=== PATIENT | female | born 1990 | race Caucasian/White ===

== ENCOUNTER 2018-03-20 08:00 | Day surgery (SDC) | payer OTHER ==
[~2018-03-20 08:00] MED LIST: Dexamethasone 4 MG/ML 5 ML MDV ONE; HYDROmorphone 0.5 MG/0.5 ML Syringe ONE; Ketorolac 30 MG/ML SDV ONE; Midazolam 1 MG/ML 2 ML SDV ONE; Ondansetron 4 MG/2 ML SDV ONE; Rocuronium 50 MG/5 ML Vial ONE; fentaNYL 250 MCG/5 ML SDV ONE
[2018-03-20] MEDS ORDERED: Lidocaine 1% with EPINEPHrine 1:100,000 20 ML MDV ONE (08:06)
[2018-03-20] MEDS ORDERED: Sodium Chloride 0.9% 50 ML SDV ONE (08:07)
[2018-03-20] MEDS ORDERED: Propofol 200 MG/20 ML SDV ONE (08:17)
--- NOTE | 2018-03-20 08:26 | PCM.PREANE ---
Preanesthetic Assessment - Anesthesia/Transfusion/Family Hx Anesthesia History: Prior Anesthesia Without Reaction Family History of Anesthesia Reaction: No Transfusion History: No Prior Transfusion(s) - Review of Systems General: No Symptoms Pulmonary: Other (exercise induced asthma, no symptoms for 2+ years, does use vapes, last this am) Cardiovascular: No Symptoms Gastrointestinal: No Symptoms Neurological: No Symptoms Other: Reports: Thyroid Problems (hypothyroidism on replacement) - Physical Assessment NPO Status Date: 03/19/18 NPO Status Time: 18:00 Pulse: 77 O2 Sat by Pulse Oximetry: 100 Respiratory Rate: 16 Blood Pressure: 94/67 Temperature: 36.8 C Weight: 60.4 kg ASA Class: 2 Mental Status: Alert & Oriented x3 Airway Class: Mallampati = 2 Dentition: Reports: Normal Dentition Thyro-Mental Finger Breadths: 3 Mouth Opening Finger Breadths: 3 ROM/Head Extension: Full Lungs: Clear to Auscultation, Normal Respiratory Effort Cardiovascular: Regular Rate, Regular Rhythm - Allergies Allergies/Adverse Reactions: Allergies Allergy/AdvReac Type Severity Reaction Status Date / Time Penicillins Allergy Anaphylactic Verified 03/19/18 08:48 Shock - Blood Blood Available: No Product(s) Available: None - Anesthesia Plan Pre-Op Medication Ordered: None - Acknowledgements Anesthesia Type Planned: General Anesthesia Pt an Appropriate Candidate for the Planned Anesthesia: Yes Alternatives and Risks of Anesthesia Discussed w Pt/Guardian: Yes Pt/Guardian Understands and Agrees with Anesthesia Plan: Yes PreAnesthesia Questionnaire Cardiovascular History: Reports: None Respiratory History: Reports: Asthma Gastrointestinal History: Reports: Other (See Below) Other Gastrointestinal History: abdominal pain Genitourinary History: PROPOSAL CONSULTANT History: Reports: Other (See Below) Other OB/BYN History: menorrhagia, dysmenorrhea, dyspareunia Musculoskeletal History: Reports: None Neurological History: Reports: None Psychiatric History: Reports: None Endocrine/Metabolic History: Reports: Hypothyroidism, Vitamin D Deficiency Hematologic History: Reports: None Immunologic History: Reports: None Oncologic (Cancer) History: Reports: None Dermatologic History: Reports: None - Past Surgical History Head Surgeries/Procedures: Reports: None HEENT Surgical History: Reports: Tonsillectomy Cardiovascular Surgical History: Reports: None Respiratory Surgical History: Reports: None GI Surgical History: Reports: None Female Surgical History: Reports: Tubal Ligation Male Surgical History: Reports: None Endocrine Surgical History: Reports: None Neurological Surgical History: Reports: None Musculoskeletal Surgical History: Reports: None Oncologic Surgical History: Reports: None Dermatological Surgical History: Reports: None - SUBSTANCE USE Smoking Status *Q: Current Every Day Smoker Recreational Drug Use History: No - HOME MEDS Home Medications: Home Meds Cholecalciferol (Vitamin D3) [Vitamin D3] 50,000 unit PO Q72H 03/19/18 [History] Levothyroxine 25 mcg PO DAILY 03/19/18 [History] Multivitamin [Daily Multiple Vitamin] 1 tab PO DAILY 03/19/18 [History] - CURRENT (IN HOUSE) MEDS Current Meds: Current Medications Discontinued Medications Dexamethasone (Dexamethasone) Confirm Administered Dose 20 mg .ROUTE .STK-MED ONE Stop: 03/20/18 07:01 Fentanyl (Sublimaze) Confirm Administered Dose 250 mcg .ROUTE .STK-MED ONE Stop: 03/20/18 07:01 Hydromorphone HCl (Dilaudid) Confirm Administered Dose 0.5 mg .ROUTE .STK-MED ONE Stop: 03/20/18 07:01 Ketorolac Tromethamine (Toradol) Confirm Administered Dose 30 mg .ROUTE .STK- MED ONE Stop: 03/20/18 07:01 Lidocaine/Epinephrine (Xylocaine 1% With Epinephrine 1:100,000) Confirm Administered Dose 20 ml .ROUTE .STK-MED ONE Stop: 03/20/18 08:07 Midazolam HCl (Versed 1 Mg/Ml) Confirm Administered Dose 2 mg .ROUTE .STK-MED ONE Stop: 03/20/18 07:01 Ondansetron HCl (Zofran) Confirm Administered Dose 4 mg .ROUTE .STK-MED ONE Stop: 03/20/18 07:01 Propofol (Diprivan 20 Ml) Confirm Administered Dose 200 mg .ROUTE .STK-MED ONE Stop: 03/20/18 08:18 Rocuronium [place] (Zemuron) Confirm Administered Dose 50 mg .ROUTE .STK-MED ONE Stop: 03/20/18 07:01 Sodium Chloride (Normal Saline) Confirm Administered Dose 50 ml .ROUTE .STK-MED ONE Stop: 03/20/18 08:08
[2018-03-20] MEDS ORDERED: GENTAMICIN IV ONE ×2 (09:00)
[2018-03-20] MEDS ORDERED: DEXTROSE 5% IV ONE ×2 (09:00)
[2018-03-20] MEDS ORDERED: Clindamycin Phosphate 900 MG in Dextrose 5% in Water 100 ML IV ONE ×2 (09:00)
[2018-03-20] MEDS ORDERED: WATER IV ONE ×2 (09:00)
[2018-03-20] MEDS ORDERED: Lidocaine 1%/Sod Bicarbonate in NS 8.4% 1 ML Syringe IDERM PRN (09:40)
[2018-03-20] MEDS ORDERED: Sodium Chloride 0.9% 10 ML Syringe FLUSH PRN (09:40)
[2018-03-20] MEDS ORDERED: HYDROmorphone 0.5 MG/0.5 ML Syringe ONE (09:43)
[2018-03-20] MEDS ORDERED: Lactated Ringers 1,000 ML IV SCH (09:45)
[2018-03-20] MEDS ORDERED: Lactated Ringers 1,000 ML ONE ×2 (10:01→10:18)
--- NOTE | 2018-03-20 10:17 | PCM.OPNOTE ---
- General Post-Op/Procedure Note Date of Surgery/Procedure: 03/20/18 Operative Procedure(s): Total vaginal hysterectomy with bilateral salpingectomy Findings: Overall normal-appearing cervix, uterus, bilateral tubes and visualized portions of the bilateral ovaries. Advised portion of the intestines was normal. Falope ring was present bilaterally on the fallopian tubes Pre Op Diagnosis: Menorrhagia, dysmenorrhea, dyspareunia Post-Op Diagnosis: Same Anesthesia Technique: General ET Tube Primary Surgeon: Dean Gutierrez Anesthesia Provider: Laura Lazo Head Waiter/Waitress: Christiano Correia Reason Head Waiter/Waitress Was Necessary: Patient safety, reduction of patient morbidity and mortality, retraction Role of Head Waiter/Waitress: Retraction and assisting with visualization during difficult portions of the case Pathology: Cervix, uterus, bilateral fallopian tubes with Falope ring bilaterally Fluid Replacement, Intraop: 2,000 Output, Urine Amount: 0 EBL in mLs: 150 Complications: None Condition: Good Free Text/Narrative:: Procedure in detail: The patient was seen in the preoperative holding area and risks, benefits, indications, and alternatives of the procedure were reviewed with the patient and she desired to proceed with a total vaginal hysterectomy with bilateral salpingectomy. Consents were signed. The patient was given general anesthesia with an endotracheal tube that was placed without difficulty. The patient was placed in dorsal lithotomy position , prepped, and draped in normal sterile fashion. A weighted speculum was placed into the vagina and the anterior lip of the cervix was grasped with the single-tooth tenaculum. A double-tooth tenaculum was then used to grasp the entirety of the cervix. The cervix was injected circumferentially with 0.25% lidocaine with epinephrine. The cervix was circumferentially incised with a scalpel. The bladder was dissected off the pubovesical cervical fascia anteriorly with Lauren scissors. The anterior cul-de-sac was entered sharply. The posterior cul-de-sac was entered sharply without difficulty using Lauren scissors. A Melody clamp was placed over the uterosacral ligaments on the patient's left side. These were transected and suture ligated with 0-Monocryl suture. This was repeated on the patient's right side. Hemostasis was assured. The cardinal ligaments were then clamped on both sides with Enseal vessel sealing device cauterized and transected. The uterine arteries and broad ligament were then serially clamped with Enseal vessel sealing device, cauterized and transected on both sides. Excellent hemostasis was visualized. The cornua were clamped bilaterally with Enseal vessel sealing device cauterized and transected and the uterus delivered. The fallopian tubes on the patient's right side was grasped using a [place] clamp and the broad ligament portion was clamped using Enseal device cauterized and transected from underlying tissue. This was repeated on the patient's left side. The surgical beds were inspected and noted to be hemostatic. The posterior vaginal cuff was closed with running locked sutures of 0-Monocryl. The anterior vaginal cuff was closed with [id number] stitches in a vertical fashion with 0-Monocryl. The remainder of the vaginal cuff was closed with [id number] stitches of 0- Monocryl in an interrupted fashion. All instruments were removed from the vagina. The patient was awoken and taken to the PACU for recovery in stable condition. Sponge, lap, needle, and instrument counts were correct x 2.
[2018-03-20] MEDS ORDERED: fentaNYL 100 MCG/2 ML SDV IVPUSH PRN (10:27)
[2018-03-20] MEDS ORDERED: Ondansetron 4 MG/2 ML SDV IVPUSH PRN (10:27)
--- NOTE | 2018-03-20 10:27 | PCM.POSTAN ---
POST ANESTHESIA ASSESSMENT - MENTAL STATUS Mental Status: Alert, Oriented - VITAL SIGNS Pulse Rate: 73 SaO2: 100 Resp Rate: 9 Blood Pressure: 100/63 Temperature: 98.1 C - CARDIOVASCULAR CV Status: Pulse Rate WNL, Blood Pressure Stable - GASTROINTESTINAL GI Status: No Symptoms - PAIN Pain Score: 0 - POST OP HYDRATION Hydration Status: Adequate & Stable
[2018-03-20] MEDS ORDERED: HYDROmorphone 0.5 MG/0.5 ML Syringe IVPUSH ONE (11:00)
[2018-03-20] MEDS ORDERED: Acetaminophen/oxyCODONE 325-5 MG Tab PO ONE (11:55)
--- NOTE | 2018-03-20 12:07 | PCM48HPAN ---
Post Anesthesia Note - EVALUATION WITHIN 48HRS OF ANESTHETIC Vital Signs in Normal Range: Yes Patient Participated in Evaluation: Yes Respiratory Function Stable: Yes Airway Patent: Yes Cardiovascular Function Stable: Yes Hydration Status Stable: Yes Pain Control Satisfactory: Yes Nausea and Vomiting Control Satisfactory: Yes Mental Status Recovered: Yes Pulse Rate: 75 Resp Rate: 16 Temperature: 98.1 C Blood Pressure: 99/65
== END 2018-03-20 13:45 | disposition home or self-care (01) ==
LOC: JD.SDS 08:00
PROVIDERS: ATTEND Obstetrics & Gynecology
DX: N87.9 Dysplasia of cervix uteri, unspecified (principal); K66.0 Peritoneal adhesions (postprocedural) (postinfection); N83.8 Other noninflammatory disorders of ovary, fallopian tube and broad ligament; N92.0 Excessive and frequent menstruation with regular cycle; N94.6 Dysmenorrhea, unspecified; N94.10 Unspecified dyspareunia; J45.909 Unspecified asthma, uncomplicated; E03.9 Hypothyroidism, unspecified; E55.9 Vitamin D deficiency, unspecified; Z88.0 Allergy status to penicillin; Z79.899 Other long term (current) drug therapy
CPT/HCPCS: 36415; 58262; 81025; 86850; 86900; 86901; A9270; J1100; J1170; J1885; J2250; J2405; J3010; J7120; 00944; J2704

== ENCOUNTER 2019-02-14 09:14 | Emergency (ER) | payer OTHER ==
--- NOTE | 2019-02-14 09:44 | EDM.PDOC ---
ED HPI GENERAL MEDICAL PROBLEM - General Chief Complaint: Headache Stated Complaint: HEADACHE x 2 MONTHS Time Seen by Provider: 02/14/19 09:43 - History of Present Illness INITIAL COMMENTS - FREE TEXT/NARRATIVE: 28-year-old female presents emergency room with a headache. This headache is been going on for 2 months it is located in the front of her head and behind her eyes. Several weeks ago she was seen by her regular provider found to be hypothyroid and was started on therapy. She has a history of hypothyroidism and this is been followed for a while. She was started on levothyroxine 50 g a day and since this time the patient has noticed palpitations she is shaky and her headache is no better. She had intermittent headaches in the past. Headache Pain Score (Numeric/FACES): 6 - Related Data Allergies Allergy/AdvReac Type Severity Reaction Status Date / Time Penicillins Allergy Anaphylactic Verified 02/14/19 09:25 Shock Home Meds: Home Meds Cholecalciferol (Vitamin D3) [Vitamin D3] 50,000 unit PO Q72H 03/19/18 [History] Levothyroxine 50 mcg PO DAILY 03/19/18 [History] Riboflavin 400 mg PO DAILY 02/14/19 [History] Past Medical History Cardiovascular History: Reports: None Respiratory History: Reports: Asthma Gastrointestinal History: Reports: Other (See Below) Other Gastrointestinal History: abdominal pain RUBBER TURNER History: Reports: Other (See Below) Other RUBBER TURNER History: menorrhagia, dysmenorrhea, dyspareunia Musculoskeletal History: Reports: None Neurological History: Reports: None Psychiatric History: Reports: None Endocrine/Metabolic History: Reports: Hypothyroidism, Vitamin D Deficiency Hematologic History: Reports: None Immunologic History: Reports: None Oncologic (Cancer) History: Reports: None Dermatologic History: Reports: None - Past Surgical History Head Surgeries/Procedures: Reports: None HEENT Surgical History: Reports: Tonsillectomy Cardiovascular Surgical History: Reports: None Respiratory Surgical History: Reports: None GI Surgical History: Reports: None Female Surgical History: Reports: Tubal Ligation Endocrine Surgical History: Reports: None Neurological Surgical History: Reports: None Musculoskeletal Surgical History: Reports: None Oncologic Surgical History: Reports: None Dermatological Surgical History: Reports: None Social & Family History - Caffeine Use Caffeine Use: Reports: Coffee - Recreational Drug Use Recreational Drug Use: No ED ROS GENERAL - Review of Systems Review Of Systems: See Below Constitutional: Reports: Fatigue. Denies: Night Sweats HEENT: Reports: Eye Pain (Bilateral behind her eyes) Respiratory: Reports: No Symptoms Cardiovascular: Reports: Palpitations Endocrine: Reports: Fatigue GI/Abdominal: Reports: Nausea. Denies: Abdominal Pain : Reports: No Symptoms Skin: Reports: No Symptoms Neurological: Denies: Difficulty Walking Psychiatric: Reports: Anxiety Immunologic: Reports: No Symptoms - Physical Exam Exam: See Below Exam Limited By: No Limitations General Appearance: Other (Mildly anxious) Eye Exam: Right Eye: Other (No obvious exoptosis however she seemed to have some discomfort behind both of her eyes. She has a slender posture and I do not have a certain baseline.) Ears: Normal External Exam, Normal Canal, Hearing Grossly Normal, Normal TMs Nose: Normal Inspection, Normal Mucosa, No Blood Throat/Mouth: Normal Inspection, Normal Lips, Normal Teeth, Normal Gums, Normal Oropharynx, Normal Voice, No Airway Compromise Head Exam: Atraumatic, Normocephalic Neck: Normal Inspection, Supple, Non-Tender, Full Range of Motion. No: Lymphadenopathy (L), Lymphadenopathy (R) Respiratory/Chest: No Respiratory Distress, Lungs Clear, Normal Breath Sounds Cardiovascular: Regular Rate, Rhythm, No Edema, No Murmur GI/Abdominal: Normal Bowel Sounds, Soft, Non-Tender Neuro Exam (Abbreviated): Other (Cranial nerves II through XII grossly intact all muscle groups the upper extremities recall appropriate bilaterally she has no difficulty with ambulation deep tendon reflexes the patella and brachial radialis are normal. Cerebellar testing is entirely within normal limits.) Course - Vital Signs Last Recorded V/S: Last Vital Signs Temp 36.8 C 02/14/19 09:22 Pulse 120 H 02/14/19 09:22 Resp 16 02/14/19 09:22 BP 131/87 02/14/19 09:22 Pulse Ox 97 02/14/19 09:22 - Orders/Labs/Meds Orders: Active Orders 24 hr Category Date Time Status EKG Documentation Completion [RC] STAT Care 02/14/19 09:57 Active Labs: Laboratory Tests 02/14/19 02/14/19 02/14/19 Range/Units 10:10 10:10 10:36 WBC 5.23 (3.98-10.04) K/mm3 RBC 4.36 (3.98-5.22) M/mm3 Hgb 13.5 (11.2-15.7) gm/L Hct 39.4 (34.1-44.9) % MCV 90.4 (79.4-94.8) fl MCH 31.0 (25.6-32.2) pg MCHC 34.3 (32.2-35.5) g/dl RDW Std Deviation 41.5 (36.4-46.3) fL Plt Count 237 (182-369) K/mm3 MPV 9.2 L (9.4-12.3) fl Neutrophils % (Manual) 63 H (40-60) % Band Neutrophils % 0 (0-10) % Lymphocytes % (Manual) 28 (20-40) % Atypical Lymphs % 0 % Monocytes % (Manual) 2 (2-10) % Eosinophils % (Manual) 6 H (0.7-5.8) % Basophils % (Manual) 1 (0.1-1.2) Platelet Estimate Adequate RBC Morph Comment Normal Sodium 140 (136-145) mEq/L Potassium 3.9 (3.5-5.1) mEq/L Chloride 105 (98-107) mEq/L Carbon Dioxide 25 (21-32) mEq/L Anion Gap 13.9 (5-15) BUN 11 (7-18) mg/dL Creatinine 1.0 (0.55-1.02) mg/dL Est Cr Clr Drug Dosing 75.40 mL/min Estimated GFR (MDRD) > 60 (>60) mL/min BUN/Creatinine Ratio 11.0 L (14-18) Glucose 95 (74-106) mg/dL Calcium 9.2 (8.5-10.1) mg/dL Total Bilirubin 0.3 (0.2-1.0) mg/dL AST 13 L (15-37) U/L ALT 16 (14-59) U/L Alkaline Phosphatase 35 L (46-116) U/L Total Protein 7.5 (6.4-8.2) g/dl Albumin 4.3 (3.4-5.0) g/dl Globulin 3.2 gm/dL Albumin/Globulin Ratio 1.3 (1-2) Free T4 0.90 (0.76-1.46) ng/dL TSH 3rd Generation 4.591 H (0.358-3.74) uIU/mL Urine Color Yellow (Yellow) Urine Appearance Clear (Clear) Urine pH 7.0 (5.0-8.0) Ur Specific [place] 1.015 (1.005-1.030) Urine Protein Negative (Negative) Urine Glucose (UA) Negative (Negative) Urine Ketones Negative (Negative) Urine Occult Blood Negative (Negative) Urine Nitrite Negative (Negative) Urine Bilirubin Negative (Negative) Urine Urobilinogen 0.2 (0.2-1.0) Ur Leukocyte Esterase Negative (Negative) Urine RBC 0-5 (0-5) /hpf Urine WBC 0-5 (0-5) /hpf Ur Epithelial Cells 0-5 (0-5) /hpf Urine Bacteria Not seen (FEW) /hpf Urine Mucus Not seen (FEW) /hpf Urine Opiates Screen (OFPJYF=974) Ur Buprenorphine Scrn (CUTOFF=10) Ur Oxycodone Screen (WJW8IF=859) Urine Methadone Screen (RSQQJD=121) Ur Propoxyphene Screen (VITSPC=356) Ur Barbiturates Screen (XHDYXO=195) Ur Tricyclics Screen (WCKYBE=885) Ur Phencyclidine Scrn (CUTOFF=25) Ur Amphetamine Screen (RGOWVG=295) U Methamphetamines Scrn (YFUVDQ=526) U Benzodiazepines Scrn (TOZLFR=879) U Cocaine Metab Screen (HHGVAD=670) U Marijuana (THC) Screen (CUTOFF=50) 02/14/19 Range/Units 11:40 WBC (3.98-10.04) K/mm3 RBC (3.98-5.22) M/mm3 Hgb (11.2-15.7) gm/L Hct (34.1-44.9) % MCV (79.4-94.8) fl MCH (25.6-32.2) pg MCHC (32.2-35.5) g/dl RDW Std Deviation (36.4-46.3) fL Plt Count (182-369) K/mm3 MPV (9.4-12.3) fl Neutrophils % (Manual) (40-60) % Band Neutrophils % (0-10) % Lymphocytes % (Manual) (20-40) % Atypical Lymphs % % Monocytes % (Manual) (2-10) % Eosinophils % (Manual) (0.7-5.8) % Basophils % (Manual) (0.1-1.2) Platelet Estimate RBC Morph Comment Sodium (136-145) mEq/L Potassium (3.5-5.1) mEq/L Chloride (98-107) mEq/L Carbon Dioxide (21-32) mEq/L Anion Gap (5-15) BUN (7-18) mg/dL Creatinine (0.55-1.02) mg/dL Est Cr Clr Drug Dosing mL/min Estimated GFR (MDRD) (>60) mL/min BUN/Creatinine Ratio (14-18) Glucose (74-106) mg/dL Calcium (8.5-10.1) mg/dL Total Bilirubin (0.2-1.0) mg/dL AST (15-37) U/L ALT (14-59) U/L Alkaline Phosphatase (46-116) U/L Total Protein (6.4-8.2) g/dl Albumin (3.4-5.0) g/dl Globulin gm/dL Albumin/Globulin Ratio (1-2) Free T4 (0.76-1.46) ng/dL TSH 3rd Generation (0.358-3.74) uIU/mL Urine Color (Yellow) Urine Appearance (Clear) Urine pH (5.0-8.0) Ur Specific [place] (1.005-1.030) Urine Protein (Negative) Urine Glucose (UA) (Negative) Urine Ketones (Negative) Urine Occult Blood (Negative) Urine Nitrite (Negative) Urine Bilirubin (Negative) Urine Urobilinogen (0.2-1.0) Ur Leukocyte Esterase (Negative) Urine RBC (0-5) /hpf Urine WBC (0-5) /hpf Ur Epithelial Cells (0-5) /hpf Urine Bacteria (FEW) /hpf Urine Mucus (FEW) /hpf Urine Opiates Screen Negative (OTTFLY=342) Ur Buprenorphine Scrn Negative (CUTOFF=10) Ur Oxycodone Screen Negative (KLM1RA=753) Urine Methadone Screen Negative (YVMAKP=699) Ur Propoxyphene Screen Negative (OYNONV=227) Ur Barbiturates Screen Negative (YGFTRX=650) Ur Tricyclics Screen Negative (HZDGXH=483) Ur Phencyclidine Scrn Negative (CUTOFF=25) Ur Amphetamine Screen Negative (WNTFOT=056) U Methamphetamines Scrn Negative (ESLTZM=334) U Benzodiazepines Scrn Negative (CFMWUC=316) U Cocaine Metab Screen Negative (KWYIAC=650) U Marijuana (THC) Screen Negative (CUTOFF=50) Meds: Medications Discontinued Medications Generic Name Dose Route Start Last Admin Trade Name Anahi PRN Reason Stop Dose Admin Diphenhydramine HCl 50 mg 02/14/19 09:57 02/14/19 10:11 Benadryl IVPUSH 02/14/19 09:58 50 mg ONETIME ONE Administration Lactated Ringer's 1,000 mls @ 999 mls/hr 02/14/19 09:57 02/14/19 10:10 Ringers, Lactated IV 02/14/19 10:57 999 mls/hr .BOLUS ONE Administration Ondansetron HCl 4 mg 02/14/19 09:57 02/14/19 10:11 Zofran Odt PO 02/14/19 09:58 4 mg ONETIME ONE Administration Propranolol HCl 30 mg 02/14/19 11:26 02/14/19 11:51 Inderal PO 02/14/19 11:27 30 mg ONETIME ONE Administration - Re-Assessments/Exams Free Text/Narrative Re-Assessment/Exam: 02/14/19 11:59 A she has a headache this could be secondary to hyperthyroidism on top of hypothyroid changes behind her eyes however this is somewhat uncertain as her headache started before she was started on the supplementation will give her fluids Benadryl and Zofran this perhaps helped a little. Her pulses come down. We'll try her on gentle dose of propranolol and without significant improvement in her headache will check a CT. I suspect a lot of her symptoms are due to start in the thyroid supplementation on top of what sounds like chronic hypothyroidism. Case reviewed with the hospitalist Dr. Melendez who agrees on this treatment plan. The patient will have very close outpatient follow-up with recommendations to check for autoimmune causes of her hypothyroid state 02/14/19 13:10 CT is normal the patient is exit doing better after 30 mg of propanolol headache is improving somewhat she is much less shaky and able to sleep. We will discharge at this time anticipate clinic follow-up in the next couple of days would recommend further thyroid testing looking for autoimmune causes. We' ll put her on a short course of propanolol 30 mg 3 times a day, #30 it is my hope she's on this for a short period of time. She will decrease her level of thyroxine to half a pill daily until advised to increase. Departure - Departure Time of Disposition: 13:13 Disposition: Home, Self-Care 01 Clinical Impression: Headache, Hypothyroidism, Iatrogenic hyperthyroidism - Discharge Information Referrals: PCP,None [Ordering Only Provider] - Forms: ED Department Discharge Additional Instructions: Return to the emergency room with any questions or problems or worsening symptoms. Decrease your levothyroxine to half a pill daily. Take the propanolol as directed. It is my hope that you don't need to take this very long. Follow-up in the clinic in the next couple of days. - My Orders Last 24 Hours: My Active Orders 02/14/19 09:57 EKG Documentation Completion [RC] STAT - Assessment/Plan Last 24 Hours: My Active Orders 02/14/19 09:57 EKG Documentation Completion [RC] STAT
[2019-02-14] MEDS ORDERED: Ondansetron 4 MG Tab.DIS PO ONE (09:57)
[2019-02-14] MEDS ORDERED: Lactated Ringers 1,000 ML IV ONE (09:57)
[2019-02-14] MEDS ORDERED: diphenhydrAMINE 50 MG/ML SDV IVPUSH ONE (09:57)
[2019-02-14] MEDS ORDERED: Propranolol 20 MG Tab PO ONE (11:26)
--- NOTE | 2019-02-14 12:26 | CT ---
Head CT Technique: Multiple axial sections through the brain were obtained. Intravenous contrast was not utilized. Comparison: No prior intracranial imaging. Findings: Ventricles along with basal cisterns and sulci over the convexities are within normal limits for the patient's age. No abnormal parenchymal densities are seen. No evidence of intracranial hemorrhage. No midline shift or mass effect is seen. Bone window settings were reviewed which shows the visualized sinuses to appear clear. No acute calvarial abnormality is seen. Impression: 1. Nothing acute is appreciated on noncontrast head CT exam. Diagnostic code #1
== END 2019-02-14 13:26 | disposition home or self-care (01) ==
LOC: JD.ED 09:14
DX: E05.80 Other thyrotoxicosis without thyrotoxic crisis or storm (principal); E03.9 Hypothyroidism, unspecified; E55.9 Vitamin D deficiency, unspecified; Z79.899 Other long term (current) drug therapy
CPT/HCPCS: 36415; 70450; 80053; 80306; 81001; 84439; 84443; 85007; 85027; 93005; 96361; 96374; 99284; A9270; J1200; J7120; 93010